=== PATIENT | female | born 1960 | race Caucasian/White ===

== ENCOUNTER 2018-05-18 17:37 | Emergency (ER) | payer BC ==
[2018-05-18 18:27] LABS: Absolute Lymphocytes (CBC) 1.8 K/uL (0.7-4.9); Absolute Monocytes 0.5 K/uL (0.1-1.3); Absolute Neutrophil 7.4 K/uL (1.8-8.0); Basophils % 0.7 % (0-1.3); Hematocrit 37.8 % (36.0-45.0); Lymphocytes % 17.9 % (15.3-44.8); Monocytes % 5.1 % (3.3-12.3); RBC Red Blood Cell Count 4.05 M/uL (3.86-4.86)
--- NOTE | 2018-05-18 18:31 | RAD REPORT ---
EXAM DESCRIPTION: CT - Head Brain Wo Cont - 05/18/2018 6:16 pm CLINICAL HISTORY: Numbness COMPARISON: None. TECHNIQUE: Computed axial tomography of the head was obtained. IV contrast was not requested. All CT scans are performed using dose optimization technique as appropriate and may include automated exposure control or mA/KV adjustment according to patient size. FINDINGS: An intracranial bleed is not seen . The ventricles are normal in caliber. No extra-axial fluid collection is noted. 13 millimeter calcification is present along the anterior aspect of the falx. No surrounding edema Fluid within the sinuses/ mastoids is not seen. IMPRESSION: No acute intracranial abnormality is seen. If patient's symptoms persist MRI of the bra in would be recommended. 13 millimeter calcification is present along the anterior aspect of the falx. No surrounding edema. T his may represent a meningioma
[2018-05-18 18:43] LABS: ALT/SGPT 136 U/L (12-78); AST/SGOT 49 U/L (15-37); Albumin 3.4 g/dL (3.4-5.0); Alkaline Phosphatase 178 U/L (45-117); BUN Blood Urea Nitrogen 49 mg/dL (7-18); Bicarbonate 25 mmol/L (21-32); Bilirubin Direct < 0.1 mg/dL (0-0.2); Bilirubin Total 0.3 mg/dL (0.2-1.0); Glucose Level 360 mg/dL (74-106); NT PRO-BNP 302 pg/mL (<125); Potassium 4.1 mmol/L (3.5-5.1); Protein, Total 7.1 g/dL (6.4-8.2); Sodium Level 142 mmol/L (136-145); Troponin (Emerg Dept Use Only) < 0.02 ng/mL (0.0-0.045)
[2018-05-18] MEDS ORDERED: MECLIZINE HCL 12.5 MG TAB ONE (19:03)
[2018-05-18] MEDS ORDERED: NA CHLORIDE 0.9% 1,000 ML ONE ×2 (19:03→20:15)
[2018-05-18 19:42] LABS: Urine Blood NEGATIVE (NEG); Urine Glucose 2+ (NEG); Urine Protein 3+ (NEG); Urine pH 5.5 (5.0-7.0)
[2018-05-18] MEDS ORDERED: INSULIN -REGULAR HUMAN 50 UNIT/0.5 ML ML ONE (20:15)
[2018-05-18 20:22] LABS: Urine Bacteria 20-50 /HPF (<20); Urine Culture Reflex Order REFLEXED; Urine RBC NONE SEEN /HPF (NONE SEEN)
[2018-05-18 20:49] LABS: Blood Morphology Comment NOT SEEN (NOT SEEN); Platelet Estimate ADEQ; Urine White Blood Cell Casts OK
--- NOTE | 2018-05-18 21:01 | ER ---
Nurse's Notes [facility] Name: Lorena Peoples Age: 58 yrs Sex: Female : 1960 Arrival Date: 05/18/2018 Time: 17:40 Bed 25 Private MD: Diagnosis: Dizziness and giddiness;Paresthesia of skin-Left side of face;Diabetes mellitus due to underlying condition with hyperglycemia Presentation: 05/18 17:40 Presenting complaint: EMS states: PATIENT HAS BEEN HAVING THE SYMPTOMS FOR A COUPLE OF rv DAYS NOW. FEELING WEAK AND NUMBNESS ON THE LOWER LIMBS, AND ALSO DIZZINESS. WHICH GOT WORSE WEDNESDAY. PATIENT ALSO FEELS HER LEFT SIDE OF THE FACE IS DROOPING. SHE HAD A NECK SURGERY 8 MONTHS AGO AND HAVE A SCHEDULE FOLLOW UP WITH DR JENNINGS. Transition of care: patient was not received from another setting of care. Onset of symptoms was May 18, 2018 at 17:30. Risk Assessment: Do you want to hurt yourself or someone else? Patient reports no desire to harm self or others. Initial Sepsis Screen: Does the patient meet any 2 criteria? No. Patient's initial sepsis screen is negative. Does the patient have a suspected source of infection? No. Patient's initial sepsis screen is negative. Care prior to arrival: None. 17:40 Method Of Arrival: EMS: [facility] rv 17:40 Acuity: SHANNON 3 rv Triage Assessment: 17:50 General: Appears in no apparent distress. comfortable, Behavior is calm, cooperative. rv Pain: Denies pain. EENT: No signs and/or symptoms were reported regarding the EENT system. Neuro: Level of Consciousness is awake, alert, obeys commands, Oriented to person, place, time, situation. Cardiovascular: Capillary refill < 3 seconds. Respiratory: Airway is patent. GI: No signs and/or symptoms were reported involving the gastrointestinal system. : No signs and/or symptoms were reported regarding the genitourinary system. Derm: Skin is intact. Musculoskeletal: No signs and/or symptoms reported regarding the musculoskeletal system. Historical: - Allergies: 17:49 Vioxx; rv - Home Meds: 17:58 Novolin 70/30 Innolet Sub-Q 60 unit twice a day [Active]; amlodipine 5 mg tab 1 tab rv once daily [Active]; Effexor XR 75 mg Oral cp24 1 cap once daily [Active]; Januvia 100 mg oral tab 1 tab once daily [Active]; Diovan 320 mg Oral tab 1 tab once daily [Active]; spironolactone 25 mg Oral tab 1 tab once daily [Active]; Vitamin D Oral [Active]; glipizide 10 mg Oral tab 1 tab once daily [Active]; metformin 1,000 mg Oral TG24 1 tab 2 times per day [Active]; allopurinol 300 mg Oral tab 1 tab once daily [Active]; Prevacid Oral [Active]; Lipitor 10 mg Oral tab 1 tab once daily [Active]; Bystolic 5 mg oral tab 1 tab once daily [Active]; - PMHx: 17:49 Diabetes - IDDM; Hypertension; neuropathy; retinopathy; rv - PSHx: 17:49 NECK SURGERY; Appendectomy; BREAST REDUCTION; EXLORE LAP, APPENDECTOMY; rv - Immunization history:: Adult Immunizations up to date. - Social history:: Smoking status: Patient/guardian denies using tobacco. - Ebola Screening: : Patient negative for fever greater than or equal to 101.5 degrees Fahrenheit, and additional compatible Ebola Virus Disease symptoms Patient denies exposure to infectious person Patient denies travel to an Ebola-affected area in the 21 days before illness onset. Screenin:45 Abuse screen: Denies threats or abuse. Denies injuries from another. Nutritional ca1 screening: No deficits noted. 17:45 Tuberculosis screening: No symptoms or risk factors identified. Fall Risk IV access (20 ca1 points). Assessment: 17:45 General: Appears in no apparent distress. comfortable, Behavior is calm, cooperative, ca1 appropriate for age. Pain: Denies pain. Neuro: Level of Consciousness is awake, alert, obeys commands, Oriented to person, place, time, situation, Automobile Damage Appraiser are equal bilaterally Moves all extremities. Gait is steady, Speech is normal, Facial symmetry appears normal, Pupils are PERRLA, Reports dizziness, since melo numbness in face, left side since Melo. Cardiovascular: Heart tones S1 S2 present Capillary refill < 3 seconds Patient's skin is warm and dry. Respiratory: Airway is patent Respiratory effort is even, unlabored, Breath sounds are clear bilaterally. GI: Abdomen is flat, non-distended, Bowel sounds present X 4 quads. Abd is soft and non tender X 4 quads. Reports nausea. : No deficits noted. No signs and/or symptoms were reported regarding the genitourinary system. EENT: No deficits noted. No signs and/or symptoms were reported regarding the EENT system. Derm: Skin is intact, is healthy with good turgor, Skin is pink, warm \\T\\ dry. Musculoskeletal: Circulation, motion, and sensation intact. Capillary refill < 3 seconds. 18:50 Reassessment: Patient appears in no apparent distress at this time. Patient and/or ca1 family updated on plan of care and expected duration. Pain level reassessed. Patient is alert, oriented x 3, equal unlabored respirations, skin warm/dry/pink. 19:40 Reassessment: Patient appears in no apparent distress at this time. Patient and/or ca1 family updated on plan of care and expected duration. Pain level reassessed. Patient is alert, oriented x 3, equal unlabored respirations, skin warm/dry/pink. 20:20 Reassessment: Patient appears in no apparent distress at this time. Ambulated pt. ca1 Reports feeling better and less dizzy than when she came here. Reports feeling "light on her feet" but with a steady gait. 21:10 Reassessment: Patient appears in no apparent distress at this time. Patient is alert, ca1 oriented x 3, equal unlabored respirations, skin warm/dry/pink. Vital Signs: 17:49 BP 120 / 47 RA; Pulse 70; Resp 16 S; Temp 98.3(O); Pulse Ox 95% on R/A; Weight 83.91 kg rv (R); Height 5 ft. 6 in. (167.64 cm) (R); 18:49 BP 145 / 62; Pulse 79; Resp 19; Pulse Ox 98% on R/A; ca1 19:35 BP 142 / 83; Pulse 77; Resp 19; Pulse Ox 100% on R/A; ca1 20:30 BP 153 / 62; Pulse 82; Resp 19; Pulse Ox 100% on R/A; ca1 21:00 BP 135 / 56; Pulse 73; Resp 19; Pulse Ox 99% on R/A; ca1 17:49 Body Mass Index 29.86 (83.91 kg, 167.64 cm) rv ED Course: 17:40 Patient arrived in ED. rv 17:40 Arm band placed on. EKG completed in triage. Results shown to MD. goff 17:41 Yash Ocampo PA is PHCP. cp 17:41 Bryson Gandhi MD is Attending Physician. cp 17:44 Triage completed. rv 17:45 No provider procedures requiring assistance completed. Maintain EMS IV. Dressing ca1 intact. Good blood return noted. Site clean \\T\\ dry. Gauge \\T\\ site: G22 at LAC. 17:45 Patient has correct armband on for positive identification. Placed in gown. Bed in low ca1 position. Call light in reach. Side rails up X2. night monitor on. Pulse ox on. NIBP on. Warm blanket given. 17:46 Rachna Osullivan, CANDY is Primary Nurse. ca1 17:52 EKG done, by is technician. reviewed by Yash MCGRATH. sm3 18:16 CT Head Brain wo Cont In Process Unspecified. EDMS 18:16 CT completed. Patient tolerated procedure well. Patient moved back from CT. nj 18:50 IV discontinued, intact, bleeding controlled, No redness/swelling at site. Pressure ca1 dressing applied, EMS IV on LAC DC 'd due to infiltration. 18:53 Inserted saline lock: 20 gauge in right antecubital area, using aseptic technique. ca1 Blood collected. 21:00 Bruce Jennings MD is Referral Physician. cp 21:20 IV discontinued, intact, bleeding controlled, No redness/swelling at site. Pressure ca1 dressing applied. Administered Medications: 18:49 Drug: Meclizine 25 mg Route: PO; ca1 19:30 Follow up: Response: No adverse reaction; Marked relief of symptoms; Nausea is decreasedca1 18:55 Drug: NS 0.9% 1000 ml Route: IV; Rate: 1 bolus; Site: right antecubital; ca1 20:00 Follow up: Response: No adverse reaction; IV Status: Completed infusion ca1 20:00 Drug: NS 0.9% 1000 ml Route: IV; Rate: 125 ml/hr; Site: right antecubital; ca1 21:00 Follow up: IV Status: pt discaharged ca1 20:05 Drug: Insulin Regular Human 10 units {Co-Signature: rv (Prince Mcadams RN).} Route: ca1 IVP; Site: right antecubital; 20:35 Follow up: Response: No adverse reaction; Other; FSBS decreased ca1 Outcome: 21:01 Discharge ordered by . cp 21:20 Discharged to home ambulatory. ca1 21:20 Condition: stable 21:20 Discharge instructions given to patient, Instructed on discharge instructions, follow up and referral plans. medication usage, Demonstrated understanding of instructions, follow-up care, medications, Prescriptions given X 2. 21:27 Patient left the ED. ca1 Signatures: Dispatcher [employer] EDMS Yash Ocampo PA PA cp Jordan, Nathan nj Montes, Shakira [facility] Prince Mcadams RN RN rv Rachna Osullivan RN RN ca1 Prince Mcadams RN rv
--- NOTE | 2018-05-18 21:02 | EDPHYS ---
Physician Documentation [facility] Name: Lorena Peoples Age: 58 yrs Sex: Female : 1960 Arrival Date: 05/18/2018 Time: 17:40 Bed 25 Private MD: ED Physician Bryson Gandhi HPI: 05/18 17:44 This 58 yrs old Female presents to ER via EMS with complaints of dizziness, cp paresthesia of left of face. 17:44 The patient presents with dizziness, lightheadedness, sense of spinning. Onset: The cp symptoms/episode began/occurred 5 day(s) ago. Associated signs and symptoms: Pertinent positives: headache, nausea, weakness of legs, Pertinent negatives: abdominal pain, chest pain, focal weakness, vomiting. 17:44 Patient's baseline: Neuro: alert and fully oriented, Motor: no deficits, Ambulation: cp walks without assistance, Speech: normal, The patient has a previous history of neuropathy. Historical: - Allergies: 17:49 Vioxx; rv - Home Meds: 17:58 Novolin 70/30 Innolet Sub-Q 60 unit twice a day [Active]; amlodipine 5 mg tab 1 tab rv once daily [Active]; Effexor XR 75 mg Oral cp24 1 cap once daily [Active]; Januvia 100 mg oral tab 1 tab once daily [Active]; Diovan 320 mg Oral tab 1 tab once daily [Active]; spironolactone 25 mg Oral tab 1 tab once daily [Active]; Vitamin D Oral [Active]; glipizide 10 mg Oral tab 1 tab once daily [Active]; metformin 1,000 mg Oral TG24 1 tab 2 times per day [Active]; allopurinol 300 mg Oral tab 1 tab once daily [Active]; Prevacid Oral [Active]; Lipitor 10 mg Oral tab 1 tab once daily [Active]; Bystolic 5 mg oral tab 1 tab once daily [Active]; - PMHx: 17:49 Diabetes - IDDM; Hypertension; neuropathy; retinopathy; rv - PSHx: 17:49 NECK SURGERY; Appendectomy; BREAST REDUCTION; EXLORE LAP, APPENDECTOMY; rv - Immunization history:: Adult Immunizations up to date. - Social history:: Smoking status: Patient/guardian denies using tobacco. - Ebola Screening: : Patient negative for fever greater than or equal to 101.5 degrees Fahrenheit, and additional compatible Ebola Virus Disease symptoms Patient denies exposure to infectious person Patient denies travel to an Ebola-affected area in the 21 days before illness onset. ROS: 17:50 Cardiovascular: Negative for chest pain, edema, palpitations. cp 17:50 Eyes: Negative for injury, pain, redness, and discharge. cp 17:50 Constitutional: Negative for body aches, chills, fever, poor PO intake. 17:50 ENT: Negative for drainage from ear(s), ear pain, sore throat, difficulty swallowing, difficulty handling secretions. 17:50 Respiratory: Negative for cough, shortness of breath, wheezing. 17:50 Abdomen/GI: Negative for abdominal pain, diarrhea, constipation, black/tarry stool, rectal bleeding, active vomiting. 17:50 : Negative for urinary symptoms, vaginal bleeding. 17:50 Skin: Negative for cellulitis, rash. 17:50 Neuro: Positive for dizziness, general weakness, Negative for altered mental status, headache, hearing loss, syncope. 17:50 All other systems are negative. Exam: 17:55 Constitutional: The patient appears in no acute distress, alert, awake, cp non-diaphoretic, non-toxic, well developed, well nourished. 17:55 Head/Face: Normocephalic, atraumatic. cp 17:55 Eyes: Pupils equal round and reactive to light, extra-ocular motions intact. Lids and lashes normal. Conjunctiva and sclera are non-icteric and not injected. Cornea within normal limits. Periorbital areas with no swelling, redness, or edema. ENT: Nares patent. No nasal discharge, no septal abnormalities noted. Tympanic membranes are normal and external auditory canals are clear. Oropharynx with no redness, swelling, or masses, exudates, or evidence of obstruction, uvula midline. Mucous membranes moist. Chest/axilla: Normal chest wall appearance and motion. Nontender with no deformity. No lesions are appreciated. 17:55 Cardiovascular: Rate: normal, Rhythm: regular, Heart sounds: murmur, not appreciated, Edema: is not appreciated, JVD: is not appreciated. 17:55 Respiratory: the patient does not display signs of respiratory distress, Respirations: normal, no use of accessory muscles, no retractions, no splinting, no tachypnea, labored breathing, is not present, Breath sounds: are clear throughout, no decreased breath sounds, no stridor, no wheezing. 17:55 Abdomen/GI: Inspection: abdomen appears normal, Bowel sounds: active, all quadrants, Palpation: abdomen is soft and non-tender, in all quadrants. 17:55 Back: pain, is absent, ROM is normal. 17:55 Skin: cellulitis, is not appreciated, no rash present. 17:55 Neuro: Orientation: to person, place \T\ time. Mentation: is normal, Cerebellar function: is grossly normal, Motor: moves all fours, strength is normal, Sensation: light touch is decreased in the left side of face. 18:03 ECG was reviewed by the Attending Physician. Vital Signs: 17:49 BP 120 / 47 RA; Pulse 70; Resp 16 S; Temp 98.3(O); Pulse Ox 95% on R/A; Weight 83.91 kg rv (R); Height 5 ft. 6 in. (167.64 cm) (R); 18:49 BP 145 / 62; Pulse 79; Resp 19; Pulse Ox 98% on R/A; ca1 19:35 BP 142 / 83; Pulse 77; Resp 19; Pulse Ox 100% on R/A; ca1 20:30 BP 153 / 62; Pulse 82; Resp 19; Pulse Ox 100% on R/A; ca1 21:00 BP 135 / 56; Pulse 73; Resp 19; Pulse Ox 99% on R/A; ca1 17:49 Body Mass Index 29.86 (83.91 kg, 167.64 cm) rv MDM: 17:48 Patient medically screened. cp 18:00 Differential diagnosis: CVA, generalized weakness, GI bleed, hypovolemia, idiopathic cp dizziness, TIA, vertigo. 20:59 Data reviewed: vital signs, nurses notes, lab test result(s), EKG, radiologic studies, cp CT scan, plain films, I have discussed the patient's presentation/case with the attending Emergency Department Physician; and as a result, I will discharge patient. ED course: VSS. Patient reports she is feeling much better and dizziness has resolved. Patient has appt with neurology, DR Jennings, tomorrow. 21:00 Test interpretation: by ED physician or midlevel provider: ECG. cp 21:00 Counseling: I had a detailed discussion with the patient and/or guardian regarding: the cp historical points, exam findings, and any diagnostic results supporting the discharge/admit diagnosis, lab results, radiology results, the need for outpatient follow up, a neurologist, to return to the emergency department if symptoms worsen or persist or if there are any questions or concerns that arise at home. Response to treatment: the patient's symptoms have markedly improved after treatment, and as a result, I will discharge patient. 05/18 17:43 Order name: Basic Metabolic Panel cp 05/18 17:43 Order name: CBC with Diff; Complete Time: 20:54 cp 05/18 17:43 Order name: LFT's; Complete Time: 19:25 cp 05/18 19:25 Interpretation: Normal except: AST 49; ALT 136; ALK 178; GLOB 3.7; A/G 0.9. cp 05/18 17:43 Order name: Magnesium; Complete Time: 19:25 cp 05/18 17:43 Order name: NT PRO-BNP; Complete Time: 19:25 cp 05/18 17:43 Order name: Troponin (emerg Dept Use Only); Complete Time: 19:25 cp 05/18 17:44 Order name: Basic Metabolic Panel; Complete Time: 19:25 EDMS 05/18 19:25 Interpretation: Normal except: GLUC 360; BUN 49; CRE 2.30; GFR 22. cp 05/18 17:44 Order name: Urine Microscopic Only; Complete Time: 20:54 cp 05/18 19:18 Order name: Glucose, Ancillary Testing; Complete Time: 19:25 EDMS 05/18 19:25 Order name: Urine Dipstick--Ancillary (enter results) ar5 05/18 19:25 Order name: Urine --Ancillary (enter results) ar5 05/18 19:25 Order name: Urine Dipstick-Ancillary EDMS 05/18 19:25 Order name: Urine --Ancillary EDMS 05/18 17:43 Order name: EKG; Complete Time: 17:44 cp 05/18 17:43 Order name: Cardiac monitoring; Complete Time: 18:49 cp 05/18 17:43 Order name: EKG - Nurse/Tech; Complete Time: 19:00 cp 05/18 17:43 Order name: IV Saline Lock; Complete Time: 19:00 cp 05/18 17:43 Order name: Labs collected and sent; Complete Time: 19:00 cp 05/18 17:43 Order name: O2 Per Protocol; Complete Time: 19:00 cp 05/18 17:43 Order name: O2 Sat Monitoring; Complete Time: 19:00 cp 05/18 17:43 Order name: CT Head Brain wo Cont; Complete Time: 18:37 cp 05/18 18:38 Interpretation: Report reviewed. 05/18 17:44 Order name: Accucheck Blood Glucose; Complete Time: 19:28 cp 05/18 20:23 Order name: Urine Culture EDMS 05/18 20:46 Order name: Glucose, Ancillary Testing; Complete Time: 20:54 EDMS 05/18 20:48 Order name: CBC Smear Scan; Complete Time: 20:54 EDMS 05/18 17:44 Order name: Urine Dipstick-Ancillary (obtain specimen); Complete Time: 19:28 cp 05/18 20:16 Order name: Misc. Order: ambulate patient; Complete Time: 20:17 cp EC:03 Rate is 81 beats/min. Rhythm is regular. AR interval is normal. QRS interval is normal. cp QT interval is normal. T waves are Flattened in lead aVL. Interpreted by me. Reviewed by me. Administered Medications: 18:49 Drug: Meclizine 25 mg Route: PO; ca1 19:30 Follow up: Response: No adverse reaction; Marked relief of symptoms; Nausea is decreasedca1 18:55 Drug: NS 0.9% 1000 ml Route: IV; Rate: 1 bolus; Site: right antecubital; ca1 20:00 Follow up: Response: No adverse reaction; IV Status: Completed infusion ca1 20:00 Drug: NS 0.9% 1000 ml Route: IV; Rate: 125 ml/hr; Site: right antecubital; ca1 21:00 Follow up: IV Status: pt discaharged ca1 20:05 Drug: Insulin Regular Human 10 units {Co-Signature: soledad (Prince Mcadams RN).} Route: ca1 IVP; Site: right antecubital; 20:35 Follow up: Response: No adverse reaction; Other; FSBS decreased ca1 Disposition: 05/19 07:03 Co-signature as Attending Physician, Bryson Gandhi MD. rn Disposition: 05/18/18 21:01 Discharged to Home. Impression: Dizziness and giddiness, Paresthesia of skin - Left side of face, Diabetes mellitus due to underlying condition with hyperglycemia. - Condition is Stable. - Discharge Instructions: Type 2 Diabetes Mellitus, Diagnosis, Adult, Dizziness, Paresthesia, Aspirin and Your Heart. - Prescriptions for Meclizine 25 mg Oral Tablet - take 1 tablet by ORAL route every 8 hours As needed; 30 tablet. Zofran 4 mg Oral Tablet - take 1 tablet by ORAL route every 12 hours As needed; 20 tablet. - Medication Reconciliation Form, Thank You Letter, Antibiotic Education, Prescription Opioid Use form. - Follow up: Bruce Jennings MD; When: Tomorrow; Reason: Recheck today's complaints. - Problem is new. - Symptoms have improved. Signatures: Dispatcher [employer] EDMS Bryson Gandhi MD MD rn Yash Ocampo PA PA cp Prince Mcadams RN RN rv [employer], CANDY Briscoe RN ca1 Prince Mcadams RN rv Corrections: (The following items were deleted from the chart) 05/18 21:03 21:01 05/18/2018 21:01 Discharged to Home. Impression: Dizziness and giddiness; cp Paresthesia of skin - Left side of face. Condition is Stable. Forms are Medication Reconciliation Form, Thank You Letter, Antibiotic Education, Prescription Opioid Use. Follow up: Bruce Jennings; When: Tomorrow; Reason: Recheck today's complaints. Problem is new. Symptoms have improved. cp 21:27 21:03 05/18/2018 21:01 Discharged to Home. Impression: Dizziness and giddiness; ca1 Paresthesia of skin - Left side of face; Diabetes mellitus due to underlying condition with hyperglycemia. Condition is Stable. Discharge Instructions: Type 2 Diabetes Mellitus, Diagnosis, Adult, Dizziness, Paresthesia, Aspirin and Your Heart. Prescriptions for Meclizine 25 mg Oral Tablet - take 1 tablet by ORAL route every 8 hours As needed; 30 tablet, Zofran 4 mg Oral Tablet - take 1 tablet by ORAL route every 12 hours As needed; 20 tablet. and Forms are Medication Reconciliation Form, Thank You Letter, Antibiotic Education, Prescription Opioid Use. Follow up: Bruce Jennings; When: Tomorrow; Reason: Recheck today's complaints. Problem is new. Symptoms have improved. cp
== END 2018-05-18 21:27 | disposition home or self-care (01) ==
LOC: ER 17:37
DX: R42 Dizziness and giddiness (principal); R20.2 Paresthesia of skin; R73.9 Hyperglycemia, unspecified; E08.9 Diabetes mellitus due to underlying condition without complications; I10 Essential (primary) hypertension; Z79.4 Long term (current) use of insulin
CPT/HCPCS: 36415; 70450; 80048; 80076; 81003; 81015; 81025; 82962; 83735; 83880; 84484; 85025; 87077; 87086; 87088; 87186; 93005; 96361; 96374; 99285; J7030

== ENCOUNTER 2020-05-01 07:23 | Day surgery (SDC) | payer BC ==
[2020-05-01] MEDS ORDERED: CEFAZOLIN/SWI 1gm 1 GM/10 ML SYR ONE (08:43)
[2020-05-01] MEDS ORDERED: NA CHLORIDE 0.9% 500 ML ONE (08:43)
[2020-05-01] MEDS ORDERED: propofoL 200 MG/20 ML VIAL IV ONE (12:49)
[2020-05-01] MEDS ORDERED: FENTANYL CITR 100 MCG/2 ML ONE (12:50)
[2020-05-01] MEDS ORDERED: MIDAZOLAM HCL 2 MG/2 ML INJ ONE (12:51)
[2020-05-01] MEDS ORDERED: LIDOCAINE 2% MPF 5 ML VIAL ONE (12:51)
[2020-05-01] MEDS ORDERED: ONDANSETRON 4 MG/2 ML VIAL ONE (13:04)
[2020-05-01] MEDS ORDERED: ROCURONIUM 50 MG/5 ML VIAL IV ONE (13:04)
[2020-05-01] MEDS ORDERED: GLYCOPYRROLATE 0.2 MG/ML SYR ONE (13:04)
[2020-05-01] MEDS ORDERED: NEOSTIGMINE 1 MG/ML -5 ML ONE (13:06)
[2020-05-01] MEDS ORDERED: BUPIVACAINE 0.25% PF 30 ML VIAL ONE (13:43)
[2020-05-01] MEDS ORDERED: EPHEDRINE SULF 50 MG/ML VIAL ONE (14:46)
--- NOTE | 2020-05-01 14:46 | P.OP ---
Preoperative diagnosis: End Stage Renal Disease Postoperative diagnosis: End Stage Renal Disease Primary procedure: Laparoscopic placement of peritoneal dialysis catheter Secondary procedure: laparoscopic adhesiolysis Anesthesia: GETA + Local Estimated blood loss: <2cc Specimen: none Findings: catheter flushed well Complications: None Drain(s): Other ([employer] catheter) Transferred to: Recovery Room Condition: Good
[2020-05-01 16:10] VITALS: BP 158/54; TEMP 96.6; O2SAT 98
--- NOTE | 2020-05-02 00:49 | OP ---
Date of Procedure: 05/01/2020 Surgeon: Ben Toure MD, Preoperative Diagnosis: End-stage renal disease. Postoperative Diagnosis: End-stage renal disease. Procedure: 1.Laparoscopic placement of peritoneal dialysis catheter. 2.Laparoscopic adhesiolysis for greater than 45 minutes. Anesthesia: General endotracheal plus local with 0.25% Marcaine without epinephrine. Estimated Blood Loss: 2 cc. Specimen: None. Findings: Catheter flushed well and there were intraabdominal adhesions from omentum to anterior abd ominal wall. Complications: None. Drains: The [employer] peritoneal dialysis catheter was placed, double-cuff style. Disposition: The patient transferred to recovery room in good condition at the end of procedure. Procedure In Detail: After informed consent was obtained, the patient was brought to the operating r oom, prepped and draped in the usual sterile fashion. After adequate anesthesia was achieved, an are a of the left upper quadrant was anesthetized with 0.25% Marcaine, sharply incised and a 5 mm 0-degre e optical trocar was introduced in the abdomen without evidence of complication. Insufflation was ob tained to 15 mmHg. At this time, there was no injury to vital structures upon entry into the abdomen . The abdomen was inspected at this time for placement of the peritoneal catheter, which had been si zed appropriately using the Stencil included in the peritoneal dialysis kit by [employer] catheter. At th is time, there were intraabdominal adhesions noted to the anterior abdominal wall, which would preclu de a safe placement of the peritoneal dialysis catheter. As such, I opted to perform a laparoscopic adhesiolysis. At this point, an additional trocar was placed in the left lower quadrant. This was s imilarly anesthetized, sharply incised. A 5 mm trocar was placed under direct visualization without evidence of complication. At this point, I used the LigaSure device to take the omentum off the ante rior abdominal wall to allow for a clean field for placement of the peritoneal dialysis catheter. Th is took approximately 45 minutes. There was no bleeding throughout the procedure as it was controlle d with the LigaSure device. No bowel mobilization was necessary throughout the procedure. At this p oint, the premarked Stencil was already marked on the patient's abdominal wall and I made a small inc ision for the introduction site of the [employer] peritoneal dialysis catheter. At this point using the i ntroducer sheath and a 45 degrees angle, it was placed toward the patient's coccyx. At this point, t he introducer sheath, inner cannula was removed, and I lubricated and performed a dilatation of the i ntroducer sheath. At this point, the [employer] peritoneal dialysis catheter was soaked, lubricated, and placed over an introducer trocar. I then used this trocar to introduce the catheter into the patient 's abdomen curling to the right with the stripe on the posterior aspect with a good landing zone. At this point, the first cuff was placed into the rectus muscle just deep to the anterior rectus sheath without evidence of complication. At this point, I opted to test the catheter and it flushed quite easily. At this point, then I placed the tunneling device on the end of the catheter, and following the premarked template, I brought the [employer] catheter out in the right upper quadrant through a counte r incision. At this point ensuring the cuff was in a smooth curvilinear fashion placed in the subcut aneous tissues. I then removed the tunneling device and tested the catheter once again, which was fo und to be in perfect position and flushing quite easily. At this point, I opted to remove the two 5 mm trocars under direct visualization without evidence of complication. I then placed a single stitc h and the rectus sheath to imbricate over the introduction site of the first cuff and the rectus musc le. This was performed using a 3-0 Vicryl suture in interrupted fashion. I then irrigated these inc isions copiously and closed the introduction site with a deep dermal plane first using 3-0 Vicryl and closed the skin with 4-0 Monocryl in a running fashion and the remaining 2 skin incisions were close d also with a 4-0 Monocryl in a running fashion with Dermabond placed over top. The patient tolerate d the procedure well without evidence of complication and was transferred to PACU in good condition. All counts were correct at the end of the case. The catheter flushed at the end of procedure quite easily, withdrew back fluid. The patient tolerated the procedure well without evidence of complicati on and transferred to PACU in good condition. All counts were correct at the end of the case. TK/MODL Voice ID: [id number] Report ID: [id number]
== END 2020-05-01 16:12 | disposition home or self-care (01) ==
LOC: OR 07:23
PROVIDERS: ATTEND Surgery
PROC: 0DNU4ZZ Release Omentum, Percutaneous Endoscopic Approach (ICD-10-PCS; 2020-05-01)
PROC: 0WHG43Z Insertion of Infusion Device into Peritoneal Cavity, Percutaneous Endoscopic Approach (ICD-10-PCS; principal; 2020-05-01 10:45)
DX: N18.6 End stage renal disease (principal); Z20.822 Contact with and (suspected) exposure to COVID-19
CPT/HCPCS: 49329; 82947 ×2; 49324; U0003; J2704; J2250; J3010; J2710; J0690; J7040; J2405